=== PATIENT | female | born 1990 | race Caucasian/White ===

== ENCOUNTER → 2022-07-16 | Outpatient (CLI) | payer OTHER | LOC: M RAD 15:21 | PROVIDERS: ATTEND Obstetrics & Gynecology | DX: N97.9 Female infertility, unspecified (principal) ==

== ENCOUNTER 2022-10-29 07:53 | Day surgery (SDC) | payer OTHER ==
[~2022-10-29] VITALS: Ht 167.6 cm; Wt 69.8 kg
[~2022-10-29 07:53] MED LIST: BUPIVACAINE HCL 0.25% 30ML VIAL As Ordered ONE; KETOROLAC 60MG 2ML VIAL As Ordered ONE; LIDOCAINE 1% SDV 30ML VIAL As Ordered ONE; LIDOCAINE 2% 100MG/5ML SDV (FOR ANES.) As Ordered ONE; LIDOCAINE W/EPINEPHRINE 1% 20ML VIAL As Ordered ONE; METHYLENE BLUE 0.5% (5MG/ML) 10 ML AMP (PROVAYBLUE) As Ordered ONE; MIDAZOLAM INJ 2MG/2ML VIAL As Ordered ONE; ONDANSETRON 4MG 2ML VIAL As Ordered ONE; SILVER NITRATE APPLICATOR (1 = QTY 10) As Ordered ONE; SYED1TAB2; fentaNYL 250 MCG/5 ML INJECTION As Ordered ONE
[2022-10-29] MEDS ORDERED: propofoL 200 MG/20 ML VIAL As Ordered ONE (07:54)
[2022-10-29] MEDS ORDERED: ROCURONIUM BROMIDE 50MG/5ML VIAL As Ordered ONE ×2 (07:54→10:00)
[2022-10-29] MEDS ORDERED: ACETAMINOPHEN 1000MG 100ML IV BAG As Ordered ONE (07:54)
[2022-10-29] MEDS ORDERED: LR 1,000 ML IV SCH ×2 (08:20→11:35)
[2022-10-29 08:31] LABS: HEMATOCRIT 40.2 % (36.0-47.0); HEMOGLOBIN 13.3 g/dl (12.0-15.5)
[2022-10-29 09:09] LABS: HCG, SERUM QUALITATIVE NEGATIVE (NEGATIVE)
[2022-10-29] MEDS ORDERED: SUGAMMADEX SODIUM 500 MG/5 ML VIAL (BRIDION) As Ordered ONE (09:44)
[2022-10-29] MEDS ORDERED: ePHEDrine SULFATE 25 MG/5 ML(5MG/ML) SYRINGE As Ordered ONE (09:45)
[2022-10-29] MEDS ORDERED: HYDROMORPHONE HCL 0.5 MG/ 0.5 ML SYRINGE IV PRN (11:35)
[2022-10-29] MEDS ORDERED: fentaNYL 100 MCG/2 ML INJECTION IV PRN (11:35)
[2022-10-29] MEDS ORDERED: oxyCODONE 5MG TAB PO PRN (11:35)
[2022-10-29] MEDS ORDERED: ONDANSETRON 4MG 2ML VIAL IV PRN (11:35)
[2022-10-29 12:47] VITALS: BP 131/65
== END 2022-10-29 13:04 | disposition home or self-care (01) ==
LOC: M SDC 07:53
PROVIDERS: ATTEND Obstetrics & Gynecology
DX: N84.0 Polyp of corpus uteri (principal); N87.9 Dysplasia of cervix uteri, unspecified; N97.9 Female infertility, unspecified; N94.6 Dysmenorrhea, unspecified; Z79.899 Other long term (current) drug therapy
CPT/HCPCS: 36415; 57460; 58558; 58662; 84703; 85014; 85018; 88305; 88307; J0131; J1100; J1885; J2250; J2405; J3010; S0020